=== PATIENT | female | born 1970 | race Caucasian/White ===

== ENCOUNTER 2017-04-14 11:35 | Emergency (ER) | payer OTHER ==
[~2017-04-14] VITALS: Ht 165.1 cm; Wt 80.7 kg
[~2017-04-14 11:35] MED LIST: LORA-478 PO
[2017-04-14 11:56] VITALS: BP 175/104
--- NOTE | 2017-04-14 11:57 | NUR ---
Patient ambulated to bed 5. RN evaluating patient at bedside.
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
[2017-04-14] MEDS ORDERED: KETOROLAC 60 MG/2 ML VIAL IM ONE (12:55)
--- NOTE | 2017-04-14 12:59 | NUR ---
VIDA BLAKELY AT BESIDE;
--- NOTE | 2017-04-14 13:04 | NUR ---
NOTIFIED ER ABOUT PT'S HIGH BLOOD PRESSURE;ER SAID IT'S OKAY;WILL CONTINUE TO MONITOR PT.
--- NOTE | 2017-04-14 13:29 | NUR ---
Patient discharged with v/s stable. Written and verbal after care instructions given and explained. Patient alert, oriented and verbalized understanding of instructions. Ambulatory with steady gait. All questions addressed prior to discharge. ID band removed. Patient advised to follow up with PMD. Rx of BACTRIM,NORCO,MOTRIN AND KEFLEX given. Patient educated on indication of medication including possible reaction and side effects. Opportunity to ask questions provided and answered.
[2017-04-14 13:34] VITALS: BP 157/123
== END 2017-04-14 13:29 | disposition home or self-care (01) ==
LOC: MED 11:38
DX: L03.115 Cellulitis of right lower limb (principal); F17.200 Nicotine dependence, unspecified, uncomplicated; F15.90 Other stimulant use, unspecified, uncomplicated; Z79.899 Other long term (current) drug therapy
CPT/HCPCS: 96372; 99283; J1885

== ENCOUNTER 2017-12-17 14:47 | Emergency (ER) | payer OTHER ==
--- NOTE | 2017-12-17 15:07 | NUR ---
NO ANSWER WHEN CALELD FOR TRIAGE
--- NOTE | 2017-12-17 15:19 | NUR ---
NO ANSWER FOR TRIAGE
--- NOTE | 2017-12-17 15:40 | NUR ---
CALLED TO BE TRIAGE FOR THE THIRD TIME , NO RESPONSE. PATIENT LEFT WITHOUT BEING SEEN BY DR. BENZ. NO FURTHER CARE PROVIDED FOR PATIENT.
== END 2017-12-17 15:40 | disposition left against medical advice (07) ==
LOC: MED 14:47
DX: Z53.21 Procedure and treatment not carried out due to patient leaving prior to being seen by health care provider (principal)

== ENCOUNTER 2019-04-02 04:45 | Emergency (ER) | payer OTHER ==
[~2019-04-02] VITALS: Ht 165.1 cm; Wt 81.6 kg
--- NOTE | 2019-04-02 04:56 | NUR ---
PT TAKEN TO BED 6
[2019-04-02 05:00] VITALS: BP 148/105
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
[2019-04-02 05:28] VITALS: BP 148/105
--- NOTE | 2019-04-02 05:28 | NUR ---
PT BUD, STATES "I'M NOT GOING TO STAY IF HE KEEPS TALKING TO THE COMMUNITY SERVICE OFFICER."
--- NOTE | 2019-04-02 05:35 | NUR ---
REPORTED INCIDENT TO PANFILO FROM [facility]
== END 2019-04-02 05:28 | disposition left against medical advice (07) ==
LOC: MED 04:45
DX: M25.512 Pain in left shoulder (principal); Z53.21 Procedure and treatment not carried out due to patient leaving prior to being seen by health care provider

== ENCOUNTER 2019-05-20 13:01 | Emergency (ER) | payer OTHER ==
[~2019-05-20] VITALS: Ht 165.1 cm; Wt 86.4 kg
[2019-05-20 13:02] VITALS: BP 182/121
== END 2019-05-20 14:18 | disposition left against medical advice (07) ==
LOC: MED 13:01
DX: K08.89 Other specified disorders of teeth and supporting structures (principal); R22.0 Localized swelling, mass and lump, head; Z53.21 Procedure and treatment not carried out due to patient leaving prior to being seen by health care provider

== ENCOUNTER 2019-05-20 20:44 | Emergency (ER) | payer OTHER ==
[~2019-05-20] VITALS: Ht 165.1 cm; Wt 86.2 kg
[2019-05-20 21:04] VITALS: BP 172/124
--- NOTE | 2019-05-20 21:56 | NUR ---
PT TO BED 7 WITH STEADY GAIT
--- NOTE | 2019-05-20 22:00 | NUR ---
48/F PRESENTED TO ED WITH C/O PAIN 2/10 RIGHT TOP MOLLAR ABCESS. REDNESS TO GUMS NOTED. NO DIFFICULTY SWALLOWING. NO COUGH. NO N/V/D. NO FEVER. NO SIGNS OF DISTRESS. STATED SHE HAS NOT TAKEN ANY MEDS PRIOR TO ARRIVING FOR PAIN RELIEF. DENIES PAST MED HX. DENIES RX. DENIES ALLERGIES.
[2019-05-20 22:40] VITALS: BP 145/114
--- NOTE | 2019-05-20 22:40 | NUR ---
Patient discharged with v/s stable. Written and verbal after care instructions given and explained. Patient alert, oriented and verbalized understanding of instructions. Ambulatory with steady gait. All questions addressed prior to discharge. ID band removed. Patient advised to follow up with PMD. Rx of Naprosyn and Amoxicillin given. Dr. Zhong made aware of pt's B/P; ERMD instructs to follow up with PMD. Patient educated on indication of medication including possible reaction and side effects. Opportunity to ask questions provided and answered.
== END 2019-05-20 22:40 | disposition home or self-care (01) ==
LOC: MED 20:44
DX: K08.89 Other specified disorders of teeth and supporting structures (principal)
CPT/HCPCS: 99283

== ENCOUNTER 2019-07-11 21:10 | Emergency (ER) | payer OTHER ==
[~2019-07-11] VITALS: Ht 165.1 cm; Wt 86.6 kg
[2019-07-11 21:23] VITALS: BP 196/126
--- NOTE | 2019-07-11 21:32 | NUR ---
PT AMBULATED TO BED #4
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
--- NOTE | 2019-07-11 21:40 | NUR ---
PATIENT STATES, " I DON'T WANT TO TAKE ANYTHING FOR MY HIGH BLOOD PRESSURE. I DON'T CARE ABOUT THAT. I DON'T WANT TO GET TREATED FOR IT". ERMD MADE AWARE. WILL CONTINUE TO MONITOR.
[2019-07-11] MEDS ORDERED: ALBUTEROL SULFATE/IPRATROPIU 3 ML SOL IH ONE (21:55)
[2019-07-11] MEDS ORDERED: methylPREDNISolone SS 125 MG/2 ML VIAL IM ONE (21:55)
[2019-07-11] MEDS ORDERED: cloNIDine 0.1 MG TAB PO ONE (21:55)
--- NOTE | 2019-07-11 22:45 | NUR ---
PATIENT ELOPED FROM FACILITY. DISCHARGE INSTRUCTIONS NOT GIVEN TO PATIENT. DR. SINGLETARY NOTIFIED.
== END 2019-07-11 22:45 | disposition left against medical advice (07) ==
LOC: MED 21:10
DX: J44.9 Chronic obstructive pulmonary disease, unspecified (principal); I10 Essential (primary) hypertension; G43.909 Migraine, unspecified, not intractable, without status migrainosus; F17.210 Nicotine dependence, cigarettes, uncomplicated; Z71.6 Tobacco abuse counseling
CPT/HCPCS: 71045; 94640; 96372; 99283; J2930; J7620; Q0092

== ENCOUNTER 2021-05-19 12:11 | Emergency (ER) | payer OTHER ==
[~2021-05-19] VITALS: Ht 165.1 cm; Wt 91.2 kg
[2021-05-19 12:11] VITALS: BP 177/115
--- NOTE | 2021-05-19 12:20 | NUR ---
PT W/C ASSISTED TO BED 03
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
--- NOTE | 2021-05-19 12:33 | NUR ---
IV ESTABLISHED TO LEFT AC 20G, GOOD BLOOD RETURN, BLOOD COLLECTED, WALKED TO LAB BY ZAHIDA MARES.
--- NOTE | 2021-05-19 12:43 | NUR ---
PT TAKEN TO CT AND XR VIA [facility].
--- NOTE | 2021-05-19 12:44 | NUR ---
BLOOD LABS DROPPED OFF AT LAB WITH TISH GUAN
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
--- NOTE | 2021-05-19 12:53 | NUR ---
PT TAKEN TO ER BED 3 VIA [facility].
[2021-05-19 13:21] LABS: BASOPHILS % (AUTO) 0.6 % (0.0-2.0); EOSINOPHILS # (AUTO) 0.1 K/uL (0-0.4); EOSINOPHILS % (AUTO) 2.5 % (0.0-4.0); HEMATOCRIT 42.8 % (36-48); HEMOGLOBIN 13.9 g/dL (12.0-16.0); LYMPHOCYTES # (AUTO) 1.6 K/uL (2.5-16.5); LYMPHOCYTES % (AUTO) 30.6 % (20.5-51.1); MEAN CORPUSCULAR HEMOGLOBIN 25 pg (27-31); MEAN CORPUSCULAR HGB CONC 32 g/dL (33-37); MEAN CORPUSCULAR VOLUME 78.1 fL (80-94); MONOCYTES # (AUTO) 0.4 K/uL (0.8-1.0); MONOCYTES % (AUTO) 7.3 % (1.7-9.3); PLATELET COUNT (AUTO) 261 K/uL (140-450); RED BLOOD CELL COUNT(AUTO) 5.48 MIL/uL (4.20-5.40); WHITE BLOOD COUNT (AUTO) 5.1 K/uL (4.8-10.8)
[2021-05-19 13:26] LABS: ANION GAP 9.1 (8-16); CARBON DIOXIDE 30.4 mmol/L (21-32); CREATININE 0.9 mg/dL (0.6-1.3); POTASSIUM 3.5 mmol/L (3.5-5.1)
[2021-05-19 13:30] LABS: ALBUMIN 3.6 g/dL (3.4-5.0); TOTAL BILIRUBIN 0.5 mg/dL (0.0-1.0)
--- NOTE | 2021-05-19 13:58 | NUR ---
PT RESTING, HOB ELEVATED FOR COMFORT, WILL CONTINUE TO MONITOR. PER DR. FAYE OLIVERA TO D/C PT WITH ELEVATED BP 175/110.
[2021-05-19 14:24] VITALS: BP 175/110
--- NOTE | 2021-05-19 14:25 | NUR ---
PATIENT ELOPED FROM FACILITY. DISCHARGE INSTRUCTIONS NOT GIVEN TO PATIENT. DR. MCKINNEY NOTIFIED.
== END 2021-05-19 14:25 | disposition home or self-care (01) ==
LOC: MED 12:11
DX: R27.0 Ataxia, unspecified (principal); R90.89 Other abnormal findings on diagnostic imaging of central nervous system
CPT/HCPCS: 36415; 70450; 71045; 80053; 83880; 84484; 85025; 93005; 99285; Q0092

== ENCOUNTER 2021-11-05 13:28 | Inpatient (IN) | payer MEDICAID, SELFPAY ==
[~2021-11-05] VITALS: Ht 165.1 cm; Wt 86.2 kg
[2021-11-05 13:35] VITALS: BP 193/110
--- NOTE | 2021-11-05 14:12 | NUR ---
LABS COLLECTED AND HANDED TO LEON YANES.
[2021-11-05 14:43] LABS: ALBUMIN 3.6 g/dL (3.4-5.0); ANION GAP 10.8 (8-16); CARBON DIOXIDE 28.7 mmol/L (21-32); CREATININE 0.8 mg/dL (0.6-1.3); POTASSIUM 3.5 mmol/L (3.5-5.1); TOTAL BILIRUBIN 0.6 mg/dL (0.0-1.0)
[2021-11-05 14:53] LABS: BASOPHILS % (AUTO) 0.9 % (0.0-2.0); EOSINOPHILS # (AUTO) 0.1 K/uL (0-0.4); HEMOGLOBIN 13.7 g/dL (12.0-16.0); LYMPHOCYTES # (AUTO) 1.3 K/uL (2.5-16.5); LYMPHOCYTES % (AUTO) 28.7 % (20.5-51.1); MEAN CORPUSCULAR HEMOGLOBIN 25 pg (27-31); MEAN CORPUSCULAR HGB CONC 33 g/dL (33-37); MEAN CORPUSCULAR VOLUME 77.4 fL (80-94); MONOCYTES # (AUTO) 0.3 K/uL (0.8-1.0); MONOCYTES % (AUTO) 7.4 % (1.7-9.3); NEUTROPHILS # (AUTO) 2.7 K/uL (1.8-7.7); PLATELET COUNT (AUTO) 307 K/uL (140-450); RED BLOOD CELL COUNT(AUTO) 5.42 MIL/uL (4.20-5.40); WHITE BLOOD COUNT (AUTO) 4.4 K/uL (4.8-10.8)
[2021-11-05] MEDS ORDERED: hydroCHLOROthiazide 25 MG TAB PO ONE (15:00)
[2021-11-05 15:02] LABS: PROTHROMBIN TIME 9.9 secs (10.8-13.4)
[2021-11-05] MEDS ORDERED: HYDR-4004 PO (15:26)
--- NOTE | 2021-11-05 15:51 | NUR ---
BP 185/112, DR SAHNI MADE AWARE. WILL RECHECK VSS IN 15 MINS.
--- NOTE | 2021-11-05 17:07 | NUR ---
BP 171/114, DR SAHNI MADE AWARE.
--- NOTE | 2021-11-05 17:35 | NUR ---
ATTEMPTED TO ROAD TEST PT, PT IS ABLE TO AMBULATE BUT IS UNSTEADY. DR SAHNI MADE AWARE
--- NOTE | 2021-11-05 18:23 | NUR ---
PATIENT TAKEN TO CT VIA GURNEY.
--- NOTE | 2021-11-05 18:40 | NUR ---
PT BACK FROM CT AND CONNECTED TO MONITOR
--- NOTE | 2021-11-05 19:19 | NUR ---
The patient's care was reviewed and supervised by Marley Turner RN.
--- NOTE | 2021-11-05 19:22 | NUR ---
Pt report given to ZAHIDA FRANCISCO. Transfer of care at this time.
--- NOTE | 2021-11-05 19:25 | NUR ---
REPORT RCEIVED FOR CONTINUITY OF CARE.
[2021-11-05] MEDS ORDERED: MORPHINE SULFATE 2 MG/ML SYR IVP PRN (19:50)
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
[2021-11-05] MEDS ORDERED: ONDANSETRON 4 MG/2 ML VIAL IVP ONE (20:00)
[2021-11-05] MEDS ORDERED: LABETALOL 100 MG/20 ML VIAL IVP ONE (20:00)
[2021-11-05] MEDS ORDERED: lisinopriL 20 MG TAB PO SCH (20:45)
[2021-11-05] MEDS ORDERED: ONDANSETRON 4 MG/2 ML VIAL IVP PRN ×2 (20:45→20:50)
[2021-11-05] MEDS: NIFEdipine 30 MG TABER PO SCH (21:00)
--- NOTE | 2021-11-05 23:36 | NUR ---
REPORT GIVEN TO GIAN MED-SUSTAINABILITY OFFICER, FOR CONTINUITY OF CARE.
--- NOTE | 2021-11-05 23:50 | NUR ---
PATIENT WAS BROUGHT TO TELEMETRY UNIT FROM ER AAOX4. NO S/S OF RESPIRATORY DISTRESS. RESPIRATION EVEN UNLABORED. BOWEL SOUNDS PRESENT IN ALL 4 QUADRANT. LUNGS CLEAR ON AUSCULTATION. SAFETY MEASURES IN PLACE. MRSA SCREENING DONE. SKIN IS INTACT. CALL LIGHT WITHIN REACH. WILL CONTINUE TO MONITOR.
--- NOTE | 2021-11-06 02:00 | NUR ---
MADE ROUNDS, PT IS SLEEPING SOUNDLY. NO SOB NOTED.
--- NOTE | 2021-11-06 03:00 | NUR ---
ASSISTED PATIENT TO RESTROOM AND BACK TO BED.
[2021-11-06 04:00] VITALS: BP 155/98
--- NOTE | 2021-11-06 05:20 | NUR ---
ASSISTED PATIENT TO THE TOILET AND BACK TO BED.
[2021-11-06] MEDS: NIFEdipine 30 MG TABER PO SCH (05:52)
--- NOTE | 2021-11-06 07:37 | NUR ---
ENDORSED TO AM NURSE FOR CONTINUITY OF CARE. PT IS ASLEEP. NO SOB NOTED.
--- NOTE | 2021-11-06 07:40 | NUR ---
RECEIVED PT ROM NIGHT RN, PT IS ASLEEP AND VISIBLE CHEST RISE AND FALL, ON HER LEFT LATERAL SIDE, RESPIRATION IS EVEN, IV LINE NOTED ON THE RAC G. 20 ON SALINE LOCK, SIDE RAILSA RE UP AND CALL LIGHT WITHIN REACH, NO SIGN OF DISTRESS NOTED AND WILL CONTINUE TO MONITOR PT.
[2021-11-06 09:00] VITALS: BP 155/96
--- NOTE | 2021-11-06 09:17 | NUR ---
PT WAS GIVEN HEPARIN SUBQ IN THE ABDOMEN, PARAMETER CHECKED.
--- NOTE | 2021-11-06 09:28 | NUR ---
RECEIVED PT REPORT FROM [facility] NURSE FOR CONTINUITY OF CARE. PT IS AWAKE ,ALERTX3 ON RA WITH RR EVEN AND UNLABORED WITH EQUAL CHEST RISE. PT IS ON TELE MONITOR SR W/PAC. AMBULATORY. INDEPENDENT. SKUIN IS DRY AND INTACT. IV IS IN THE RAC. PTIS STABLE POC DISCUSSED. PT IS STABLE.
--- NOTE | 2021-11-06 09:30 | NUR ---
PT WAS ASSISTED TO THE BATHROOM , PT MADE A PEE AND WAS ASSISTED BACK TO BED, VERBALIZED THAT SHE FEELS A LITTLE DIZZY. PT IS RESTING NOW ON THE BED.
[2021-11-06] MEDS ORDERED: ACETAMINOPHEN 325 MG TAB PO PRN (11:05)
[2021-11-06] MEDS ORDERED: ONDANSETRON 4 MG/2 ML VIAL IM/IVP PRN (11:05)
[2021-11-06] MEDS ORDERED: LORazepam 2 MG/ML VIAL IM/IVP PRN (11:05)
[2021-11-06] MEDS ORDERED: DOCUSATE SODIUM 100 MG GELCAP PO PRN (11:05)
[2021-11-06] MEDS ORDERED: ZOLPIDEM 5 MG TAB PO PRN (11:05)
[2021-11-06] MEDS ORDERED: HYDROcodone/APAP 5/325 MG 1 TAB TAB PO PRN (11:05)
[2021-11-06] MEDS ORDERED: MORPHINE SULFATE 4 MG/ML SYR IVP PRN (11:15)
--- NOTE | 2021-11-06 11:58 | NUR ---
PATIENT HAS BEEN SCREENED AND CATEGORIZED LOW NUTRITION RISK. PATIENT WILL BE SEEN WITHIN 7 DAYS OF ADMISSION. 11/12/[address]
[2021-11-06 12:00] VITALS: BP 136/92
[2021-11-06 13:55] LABS: ANION GAP 14.4 (8-16); CARBON DIOXIDE 27.8 mmol/L (21-32); CREATININE 0.7 mg/dL (0.6-1.3); POTASSIUM 3.2 mmol/L (3.5-5.1)
[2021-11-06 14:08] LABS: CHOL/HDL RATIO 2.3 (1-4.5); PHOSPHORUS 4.2 mg/dL (2.5-4.9); THYROID STIMULATING HORMONE 0.67 uIU/mL (0.34-3.74)
--- NOTE | 2021-11-06 14:28 | NUR ---
DC PLANN[age] YRS OLD FEMALE PATIENT WAS ADMITTED FROM HOME WITH A DX OF HYPERTENSIVE URGENCY. PATIENT HAS NO MEDICAL HISTORY. CXR SHOWED NO EVIDENCE OF ACUTE CARDIOPULMONARY DISEASE. CT HEAD NEGATIVE. RAPID COVID TEST NEGATIVE. BP ON ADMISSION 193/110 ADMINISTERED BP MEDS ZESTRIL PO. CONSULTED WITH NEURO AND CARDIO. DC PLAN TO GO HOME WHEN STABLE. CM TO FOLLOW
[2021-11-06 16:00] VITALS: BP 140/96
[2021-11-06] MEDS ORDERED: POTASSIUM CHLORIDE 10 MEQ TABER PO SCH (19:20)
--- NOTE | 2021-11-06 19:25 | NUR ---
ENDORSED PT TO NIGHT RN FOR CONTINUITY OF CARE, PT IS TABLE AT THIS TIME.
[2021-11-06 20:00] VITALS: BP 132/56
[2021-11-06] MEDS: NACL 0.9% 1,000 ML IV SCH (20:30)
--- NOTE | 2021-11-06 21:00 | NUR ---
HS MEDS GIVEN. K=3.2 40 MEQ K- DUR. RECEIVED. UNABLE TO COLLECT DRUG SCREEN URINE AND UA PROFILE PT FLUSHED URINE BEFORE HAT WAS PLACED. ALL SAFETY MEASURES IN PLACE WILL CONTINUE TO MONITOR.
[2021-11-07] VITALS: BP 146/90
[2021-11-07] MEDS: NACL 0.9% 1,000 ML IV SCH (03:45)
[2021-11-07 04:00] VITALS: BP 155/102
--- NOTE | 2021-11-07 04:00 | NUR ---
BP= 155/102. PT REFUSED OFFERS OF PAIN MEDS. BP EXPLAINED. "I JUST WANT TO REST NOW."
--- NOTE | 2021-11-07 06:30 | NUR ---
REASSESSED VITAL SIGNS . BP NOW 146/90. PT DENIES PAIN OR CANCINO. O2 SAT REMAINS AT 96% ON RA. NAD. CONTINUE TO OBSERVE. ENDORSE TO DAY SHIFT.
--- NOTE | 2021-11-07 07:20 | NUR ---
RECEIVED BEDSIDE REPORT FROM [facility] NURSE FOR CONTINUITY OF CARE. PT IS AWAKE AND ALERT. A&OX4. ON RA WITH BREATHING UNLABORED. PT IS ON TELE MONITOR. AMBULATORY INDEPENDENTLY. SKIN IS WARM, DRY, AND INTACT. IV IS IN THE RIGHT AC 20 GAUGE INFUSING FLUIDS ORDERED. PT IS STABLE. PLAN OF CARE DISCUSSED.
[2021-11-07 08:00] VITALS: BP 154/95
[2021-11-07] MEDS ORDERED: hydroCHLOROthiazide 25 MG TAB PO SCH (09:00)
[2021-11-07] MEDS ORDERED: NIFEdipine 30 MG TABER PO SCH (09:00)
--- NOTE | 2021-11-07 10:00 | NUR ---
PT PULLED OUT IV IN THE RIGHT AC. BLEEDING WAS CONTROLLED AND FLUIDS WERE REMOVED. PT STATES SHE WANTS TO GO HOME. EDUCATED HER TO WAIT FOR THE DOCTOR TO FIND OUT THE PLAN OF CARE. PT IS STABLE. NO DISTRESS NOTED.
--- NOTE | 2021-11-07 11:28 | NUR ---
PT IS INSISTING ON GOING HOME. DR. DAVILA AT BEDSIDE TALKING WITH PATIENT. EDUCATED ON CESSATION OF METH USE. WILL WAIT FOR D/C ORDER.
[2021-11-07] MEDS ORDERED: hydrALAZINE 25 MG TAB PO SCH (11:30)
[2021-11-07] MEDS ORDERED: NIFE30TA36 PO ×2 (11:33→11:34)
[2021-11-07] MEDS ORDERED: HYDR-4420 PO (11:33)
--- NOTE | 2021-11-07 11:40 | NUR ---
RECHECKED PT'S BP PER DR. DAVILA'S REQUEST AND IT WAS 183/130. ORDERED HYDRALAZINE 25 MG PO TAB AND IT WAS GIVEN TO PT. INFORMED PT THAT DEPENDING ON THE BP SHE WILL BE DISCHARGED PER DR. DAVILA. PT STATES SHE DOES NOT WANT TO WAIT AND WANTS TO LEAVE NOW. DR. DAVILA INFORMED HER OF THE RISKS OF LEAVING AGAINST MEDICAL ADVICE, PT STILL REFUSED TO WAIT FOR DISCHARGE ORDERS. PT STATED SHE WANTED TO LEAVE AGAINST MEDICAL ADVICE AND SIGNED THE PAPERWORK. IV WAS ALREADY REMOVED BY PT. BLEEDING CONTROLLED. ID BAND REMOVED. TELE BOX REMOVED. PT CHANGED INTO OWN CLOTHING AND EXITED THE BUILDING. STATED THAT HER RIDE WAS OUTSIDE WAITING FOR HER. STEADY GAIT NOTED. PT DISCHARGED.
[2021-11-08] MEDS ORDERED: HYDR-4004 PO (17:35)
[2021-11-08] MEDS ORDERED: NIFE30TE5 PO (17:35)
== END 2021-11-07 11:45 | disposition left against medical advice (07) | DRG 199 ==
LOC: MED 13:28 → MTU 19:52
DX: I16.0 Hypertensive urgency (principal); F15.10 Other stimulant abuse, uncomplicated; J44.9 Chronic obstructive pulmonary disease, unspecified; I10 Essential (primary) hypertension; W18.39XA Other fall on same level, initial encounter; S50.311A Abrasion of right elbow, initial encounter; Z20.822 Contact with and (suspected) exposure to COVID-19; Z79.899 Other long term (current) drug therapy; Y93.89 Activity, other specified; Y92.89 Other specified places as the place of occurrence of the external cause; Y99.8 Other external cause status; Z59.00 Homelessness unspecified; Z72.0 Tobacco use
CPT/HCPCS: 36415; 70450; 71045; 80048; 80053; 82150; 83036; 83690; 83735; 83880; 84100; 84436; 84443; 84484; 85025; 85610; 85730; 87081; 93005; 96374; 96375; 97163-GP; 99285; J1644; J2405; J3490; Q0092

== ENCOUNTER 2021-11-08 15:30 | Emergency (ER) | payer MEDICAID, SELFPAY ==
[~2021-11-08] VITALS: Ht 165.1 cm; Wt 83.5 kg
[~2021-11-08 15:30] MED LIST changes: +HYDR-4004 PO; -LORA-478 PO; +NIFE30TA36 PO
[2021-11-08 15:44] VITALS: BP 173/132
--- NOTE | 2021-11-08 16:01 | NUR ---
Patient ambulated to bed 06 with steady/even gait.
--- NOTE | 2021-11-08 16:05 | NUR ---
Pt states taking "two hits of meth at 1000" this morning. Denies chest pain, SOB, headache. States blood pressure is normally high; non-compliant with medications per pt.
--- NOTE | 2021-11-08 16:05 | NUR ---
51 y/o F BIB self from home for ER evaluation of (+) MRSA screening and weakness. Patient A&Ox4, ambulatory, states she was admitted here at [facility] for "high blood pressure and discharged 2 days ago." Pt reports she is here today for a prescription to treat her MRSA. BP 169/111 HR 103. Pt denies chest pain, headache, blurry vision, dizziness, syncope, fall/injury, SOB, cold-like symptoms, fever, chills, n/v/d. Denies any medical symptom at this time. Pt placed onto traffic monitor specialist. Lung sounds CTA. Bed locked in lowest position, side rails x 2. PMH: COPD, HTN, meth use Meds: hydrochlorothiazide, nifedipine NKDA
--- NOTE | 2021-11-08 17:18 | NUR ---
Dr. Cosme is evaluating patient at bedside
[2021-11-08] MEDS ORDERED: NIFE30TE5 PO (17:35)
[2021-11-08] MEDS ORDERED: HYDR-4004 PO (17:35)
[2021-11-08 17:38] VITALS: BP 154/101
--- NOTE | 2021-11-08 17:45 | NUR ---
Patient discharged with v/s stable. Written and verbal after care instructions given and explained. Patient alert, oriented and verbalized understanding of instructions. Ambulatory with steady gait. All questions addressed prior to discharge. ID band removed. Patient advised to follow up with PMD. Rx of Nifedipine, Hydrochlorothiazide given. Patient educated on indication of medication including possible reaction and side effects. Opportunity to ask questions provided and answered.
== END 2021-11-08 17:45 | disposition home or self-care (01) ==
LOC: MED 15:30
DX: A49.02 Methicillin resistant Staphylococcus aureus infection, unspecified site (principal); I10 Essential (primary) hypertension; F15.10 Other stimulant abuse, uncomplicated; J44.9 Chronic obstructive pulmonary disease, unspecified; Z79.899 Other long term (current) drug therapy; Z76.0 Encounter for issue of repeat prescription
CPT/HCPCS: 99281; 99283

== ENCOUNTER 2021-12-04 10:41 | Emergency (ER) | payer MEDICAID, SELFPAY ==
[~2021-12-04] VITALS: Ht 165.1 cm; Wt 84.4 kg
[~2021-12-04 10:41] MED LIST changes: +NIFE30TE5 PO
[2021-12-04 10:57] VITALS: BP 174/102
--- NOTE | 2021-12-04 11:02 | NUR ---
51Y FEMALE BIB SELF DUE TO COLD LIKE SYMPTOMS. PT STATED "SHE HAS MUCOUS THAT HAS GONE DOWN TO HER CHEST AND IS REQUESTING ONLY AMOXICILLIN." WET COUGH NOTED AND BREATH SOUNDS CLEAR. PT CURRENT BP ELEVATED AT HIS TIME. PT DENIES ANY CP, FEVER/CHILLS, N/V. PT A&OX4. NO SIGNS OF DISTRESS NOTED PMH: HTN MEDS: UNKNOWN - PT NONCOMPLIANT NKA
--- NOTE | 2021-12-04 11:29 | NUR ---
PT STATED I GONNAGO TO WATCH MY DOG.
--- NOTE | 2021-12-04 11:29 | NUR ---
PT HAS LEFT WITHOUT BEING SEEN
--- NOTE | 2021-12-04 12:00 | NUR ---
ARLETH DAVILA MADE AWARE PATIENT HAS LEFT
== END 2021-12-04 11:29 | disposition left against medical advice (07) ==
LOC: MED 10:41
DX: J00 Acute nasopharyngitis [common cold] (principal); Z53.21 Procedure and treatment not carried out due to patient leaving prior to being seen by health care provider

== ENCOUNTER 2022-03-01 08:03 | Emergency (ER) | payer MEDICAID ==
[~2022-03-01] VITALS: Ht 170.2 cm; Wt 83.9 kg
[2022-03-01 08:10] VITALS: BP 200/111
--- NOTE | 2022-03-01 08:45 | NUR ---
PT AMBULATED TO ER BED 1
--- NOTE | 2022-03-01 08:58 | NUR ---
51 y/o female c/o possible bug bite to right buttock. Patient was climbing a tree when she felt something bite her. Patient has 8/10 pain to buttock. Patient is noted with swelling, redness and heat to buttock. Medical History: Denies NKDA
[2022-03-01] MEDS: SULFAMETH/TRIMETH DS 800/160MG 1 TAB PO ONE (09:20)
[2022-03-01] MEDS: cephALEXin 500 MG CAP PO ONE (09:20)
[2022-03-01] MEDS: ACETAMINOPHEN EXTRA STRENGTH 500 MG TAB PO ONE (09:22)
--- NOTE | 2022-03-01 10:53 | NUR ---
The patient's care was reviewed and supervised by [facility], RN.
[2022-03-01] MEDS ORDERED: SULF-59 PO (10:55)
[2022-03-01] MEDS ORDERED: CEPH500C16 PO (10:55)
[2022-03-01 11:07] VITALS: BP 172/112
--- NOTE | 2022-03-01 11:09 | NUR ---
Patient discharged with v/s stable. Written and verbal after care instructions given and explained. Patient verbalized understanding. Ambulatory with steady gait. All questions addressed prior to discharge. Advised to follow up with PMD.
--- NOTE | 2022-03-01 11:09 | NUR ---
ER Physician notified of pt;s BP being at 172/112 and ER Physician stated "Thatis fine pt can go home and take her medication". Pt has no c/o. A&Ox4.
== END 2022-03-01 11:07 | disposition home or self-care (01) ==
LOC: MED 08:03
DX: L02.31 Cutaneous abscess of buttock (principal); I10 Essential (primary) hypertension; Z85.9 Personal history of malignant neoplasm, unspecified
CPT/HCPCS: 99284